=== PATIENT | female | born 1940 | race Caucasian/White ===

== ENCOUNTER → 2017-12-16 | Outpatient (CLI) | payer OTHER ==
[~2017-12-16] MED LIST: BENAZEPRIL-HCT1 EA10 PO; COLACE 100 MG100 MG PO; FELODIPINE 5 MG5 M1 PO; FLAGYL500 MG PO; HYDROCODON-ACE1 EAC7 PO; KLOR-CON 1010 MEQ PO; LEVAQUIN 750 M750 MG PO; LOPRESSOR50 PO; METFORMIN HCL500 MG PO; XALATAN2.5 ML OPHTHALMIC; XANAX 0.5 MG0.5 MG PO; ZOCOR20 MG PO
== END ==
LOC: M.RAD 14:09
DX: Z12.31 Encounter for screening mammogram for malignant neoplasm of breast (principal); M85.88 Other specified disorders of bone density and structure, other site; N91.2 Amenorrhea, unspecified; Z78.0 Asymptomatic menopausal state

== ENCOUNTER → 2019-06-05 | Outpatient (CLI) | payer OTHER | LOC: M.RAD 06:34 | DX: Z12.31 Encounter for screening mammogram for malignant neoplasm of breast (principal) ==

== ENCOUNTER 2020-07-25 17:53 | Observation (INO) | payer MEDICARE ==
[~2020-07-25] VITALS: Ht 162.6 cm; Wt 67.6 kg
[2020-07-25 18:06] VITALS: BP 126/59
[2020-07-25] MEDS ORDERED: TOPROL XL100 MG PO (18:10)
[2020-07-25] MEDS ORDERED: NORVASC5 M1 PO (18:11)
[2020-07-25] MEDS ORDERED: BENAZEPRIL-HCT1 EA10 PO (18:11)
[2020-07-25] MEDS ORDERED: METFORMIN HCL500 M3 PO (18:12)
[2020-07-25] MEDS ORDERED: KLOR-CON 1010 MEQ PO (18:12)
[2020-07-25] MEDS ORDERED: ZOCOR 20 MG TAB20 M1 PO (18:13)
[2020-07-25] MEDS ORDERED: LATANOPROST 0.2.5 ML OPHTHALMIC (18:14)
[2020-07-25] MEDS ORDERED: ASA81BEC PO (18:14)
[2020-07-25] MEDS ORDERED: VITAMIN D3 COM1 EACH PO (18:15)
[2020-07-25] MEDS ORDERED: ALPRAZOLAM 0.50.5 M1 PO (18:15)
[2020-07-25] MEDS ORDERED: NORCO 5-325 TA1 EAC2 PO ×2 (19:32)
[2020-07-25 19:56] LABS: ABSOLUTE BASOPHILS 0.1 thou/uL (0.0-0.2); ABSOLUTE EOSINOPHILS 0.2 thou/uL (0.0-0.7); ABSOLUTE LYMPHOCYTES 1.6 thou/uL (0.8-5.3); ABSOLUTE MONOCYTES 0.6 thou/uL (0.0-1.2); ABSOLUTE NEUTROPHILS 7.3 thou/uL (1.6-8.1); BASOPHILS 0.6 %; EOSINOPHILS 2.1 %; HEMOGLOBIN 12.5 gm/dL (12.0-15.0); LYMPHOCYTES 16.7 %; MCH 31.2 pg (26.0-34.0); MCHC 34.6 g/dL (28.0-37.0); MCV 90.1 fL (80.0-100.0); MPV 8.6 fl. (7.2-11.1); NUCLEATED RBCS 0 /100WBC; PLATELET COUNT* 173 thou/uL (150-400); POLYS 74.6 %; RDW-CV 13.4 % (10.5-14.5); WBC 9.7 thou/uL (4.0-11.0)
[2020-07-25 20:35] LABS: CALCIUM 8.8 mg/dL (8.5-10.1); CREATININE 0.8 mg/dL (0.6-1.3); POTASSIUM 3.6 mmol/L (3.5-5.1)
[2020-07-25 20:40] LABS: ALBUMIN 3.9 g/dL (3.4-5.0); TOTAL BILIRUBIN 0.4 mg/dL (<0.1-1.0); TOTAL PROTEIN 7.3 g/dL (6.4-8.2)
[2020-07-25 23:17] VITALS: BP 126/62
[2020-07-26 03:30] VITALS: BP 113/59
[2020-07-26 07:45] VITALS: BP 135/57
[2020-07-26 11:30] VITALS: BP 148/63
[2020-07-26] MEDS ORDERED: HYDROCODON-ACE1 EAC7 PO (12:43)
[2020-07-26 15:40] VITALS: BP 140/70
[2020-07-26 15:47] VITALS: BP 140/70
[2020-07-26 16:00] VITALS: BP 129/60
== END 2020-07-26 16:20 | disposition home or self-care (01) ==
LOC: M.ERS 17:53 → M.TBA-ER 19:39
PROVIDERS: Physician Assistant; ADMIT Internal Medicine; ATTEND Internal Medicine
DX: S42.202A Unspecified fracture of upper end of left humerus, initial encounter for closed fracture (principal); E11.9 Type 2 diabetes mellitus without complications; I10 Essential (primary) hypertension; E78.5 Hyperlipidemia, unspecified; Z79.82 Long term (current) use of aspirin; Z79.899 Other long term (current) drug therapy; Z20.828 Contact with and (suspected) exposure to other viral communicable diseases; W01.0XXA Fall on same level from slipping, tripping and stumbling without subsequent striking against object, initial encounter; Y93.89 Activity, other specified; Y92.89 Other specified places as the place of occurrence of the external cause

== ENCOUNTER → 2020-08-02 | Outpatient (CLI) | payer MEDICARE ==
[~2020-08-02] MED LIST changes: +ALPRAZOLAM 0.50.5 M1 PO; +ASA81BEC PO; +ELIQUIS5 MG PO; +LATANOPROST 0.2.5 ML OPHTHALMIC; +METFORMIN HCL500 M3 PO; +NORCO 5-325 TA1 EAC2 PO; +NORVASC5 M1 PO; +OXYCODONE HCL 55 MG PO; +PROLIA60 MG/1 ML SUBQ; +TOPROL XL100 MG PO; +TRAMADOL 50 MG50 MG PO; +VITAMIN D3 COM1 EACH PO; +VITAMIN D350 MCG PO; +ZOCOR 20 MG TAB20 M1 PO
[2020-08-02 14:13] LABS: ABSOLUTE BASOPHILS 0.1 thou/uL (0.0-0.2); ABSOLUTE EOSINOPHILS 0.3 thou/uL (0.0-0.7); ABSOLUTE LYMPHOCYTES 1.6 thou/uL (0.8-5.3); ABSOLUTE MONOCYTES 0.6 thou/uL (0.0-1.2); ABSOLUTE NEUTROPHILS 4.3 thou/uL (1.6-8.1); BASOPHILS 0.9 %; EOSINOPHILS 3.9 %; HEMATOCRIT 31.8 % (37.0-47.0); HEMOGLOBIN 11.2 gm/dL (12.0-15.0); MCH 31.4 pg (26.0-34.0); MCV 89.5 fL (80.0-100.0); MONOCYTES 9.3 %; MPV 7.7 fl. (7.2-11.1); NUCLEATED RBCS 0 /100WBC; PLATELET COUNT* 263 thou/uL (150-400); POLYS 61.9 %; RBC 3.56 mil/uL (4.20-5.00); RDW-CV 13.6 % (10.5-14.5); WBC 6.9 thou/uL (4.0-11.0)
[2020-08-02 14:23] LABS: ALBUMIN 3.6 g/dL (3.4-5.0); CALCIUM 8.6 mg/dL (8.5-10.1); CREATININE 0.8 mg/dL (0.6-1.3); POTASSIUM 3.7 mmol/L (3.5-5.1); PROTIME 11.1 Seconds (9.20-11.50); TOTAL BILIRUBIN 0.6 mg/dL (<0.1-1.0); TOTAL PROTEIN 7.5 g/dL (6.4-8.2)
[2020-08-02 15:15] LABS: ESR (SEDRATE) 34 mm/hr (0-30)
--- NOTE | 2020-08-02 17:26 | EKG ---
[place] [address] ELECTROCARDIOGRAM REPORT Name: MAXINECORKY GEOVANNI Room: [facility]#: [id number] Admission: 08/02/20 Attend Phys: Emiliano Nuñez Discharge: Date of : 42 Date of Service: 08/02/20 1457 Report #: [id number] THIS REPORT FOR: //name// [facility] Test Date: 2020-08-02 Test Time: 14:57:47 Pat Name: CORKY GOODMAN Department: Room: Gender: F Supervisor Tower: : 1940 Requested By: Emiliano Still Order Number: [id number] Leticia MD: Dave Huitron Measurements Intervals [place] Rate: 72 P: 52 MS: 173 QRS: 49 QRSD: 96 T: 27 QT: 406 QTc: 445 Interpretive Statements Sinus rhythm Atrial premature complexes No previous ECG available for comparison Electronically Signed On 08-02-2020 17:25:50 WELCOME [employer]OSTESS by Dave Huitron [email or web address] <ELECTRONICALLY SIGNED> By: Dave Huitron MD, [facility] 08/02/20 1725 145 56 Dave Huitron MD, FACC /EPI
[2020-08-04 07:07] LABS: GLYCOHEMOGLOBIN (HGB A1C) 5.8 % (4.8-5.6)
== END ==
LOC: M.LAB 10:36
PROVIDERS: ATTEND Orthopaedic Surgery
DX: Z01.812 Encounter for preprocedural laboratory examination (principal); I49.9 Cardiac arrhythmia, unspecified; Z20.828 Contact with and (suspected) exposure to other viral communicable diseases; S42.302A Unspecified fracture of shaft of humerus, left arm, initial encounter for closed fracture; X58.XXXA Exposure to other specified factors, initial encounter; Y93.89 Activity, other specified; Y92.89 Other specified places as the place of occurrence of the external cause; Y99.8 Other external cause status

== ENCOUNTER 2020-08-08 08:16 | Observation (INO) | payer MEDICARE ==
[~2020-08-08] VITALS: Ht 162.6 cm; Wt 67.6 kg
--- NOTE | ~2020-08-08 | OP ---
[facility] [place] [facility] [address] [place] [address] OPERATIVE REPORT Name: CORKY GOODMAN Room: [address] M.RNitesh#: [id number] Admission: 08/08/20 Attend Phys: Chantell Polanco Discharge: Date of : 42 Report #: [id number] THIS REPORT FOR: //name// cc: Lacy Gross MD, Lin W. MD ~ CC: Emiliano Plunkett DATE OF SERVICE: 08/08/2020 Kong Block dictating for Dr. Emiliano Still. PREOPERATIVE DIAGNOSIS: Displaced 4-part left proximal humerus fracture. POSTOPERATIVE DIAGNOSIS: Displaced 4-part left proximal humerus fracture. PROCEDURE PERFORMED: Left reverse total shoulder using the Tournier Aequalis reverse system with the following components: 1. A size 25 mm baseplate with 25 mm threaded post. 2. A glenoid screws, length 32 and 29. 3. A 36 mm standard glenosphere. 4. A size 9 humeral fracture stem. 5. Butterfield and Nephew bone cement. 6. A +12 mm retentive polyethylene component. SURGEON: Emiliano Still DO PIPE COVERER AND INSULATOR: Kong Block DO; Herlinda Hough DO ANESTHESIA: General with interscalene block. ESTIMATED BLOOD LOSS: 250 mL. SPECIMENS: None. COMPLICATIONS: None. ANTIBIOTICS: 900 IV clindamycin preoperatively. INDICATIONS: The patient is a 80-year-old female who we saw as an inpatient consult approximately 2 weeks ago for a left proximal humerus fracture. She sustained a ground level fall. Her fracture was noted to be completely displaced with high risk factors for humeral head ischemia as well as nonunion and poor function. She was discharged from the hospital, we saw her in our clinic. We discussed treatment options [place] [address] OPERATIVE REPORT Name: CORKY GOODMAN Room: [address] Ferny Holguin#: [id number] Admission: 08/08/20 Attend Phys: Chantell Polanco Discharge: Date of : 42 Report #: [id number] arthroplasty. At that point, our recommendations were for reverse shoulder arthroplasty for increased function and decrease pain. DESCRIPTION OF PROCEDURE: The patient was seen in the preoperative area. Written consent was obtained. The operative site was marked. She was brought back to the operative suite, given the benefit of general anesthesia. She was placed in modified beach chair position utilizing the T-max table. Left upper extremity was prepped and draped in normal sterile fashion. Surgery timeout for correct side, site, procedure verified. All in attendance were in agreement. We began with creation of the incision for a standard deltopectoral approach. Sharp dissection through skin. We bovied through the subcutaneous fat. We identified the interval between the deltoid and pectoralis major. The cephalic vein was identified and protected throughout the procedure. It was retracted laterally. We entered the subacromial space. Placed our retractors appropriately around the proximal humerus. We identified the fracture fragments including the tuberosities as well as the head. We mobilized the lesser tuberosity with a traction stitch. We were then able to remove the humeral head, which was displaced quite posteriorly. After this, we mobilized our greater tuberosity piece again with traction suture. At this point, we had a good view of our glenoid after the retractors were placed appropriately. We removed any redundant capsular tissues as well as the labrum and biceps anchor. We then placed a pin in 10 degrees of inferior tilt in the appropriate position with the guide on the inferior edge of the glenoid. We reamed over this with a 25 and 29 mm reamers. This was followed by the peripheral reamer for the glenosphere. We then used the central drill, followed by the drill for the threaded base. It measured to 25. The 25 mm baseplate with 25 mm threaded post was inserted. Excellent purchase with the screw. We then drilled, measured and inserted screws into the superior and inferior aspects of the baseplate. We then impacted the glenosphere in place. We turned our attention to the humerus, which we sequentially reamed up to a size 9. At this point, the final implant was opened on the back table. We then placed our sutures, combination of #5 FiberWire, #5 Ti-Cron through the posterior superior cuff. One of these sutures then subsequently placed through the subscapularis tendon as well. The remaining two #5 sutures were passed through the medial portion of the implant. We then mixed cement, wrapped it around the distal aspect of the implant. This was inserted in typical fashion in 30 degrees of retroversion. The excess cement was removed. We allowed time for the cement to harden. We then sequentially trialed components up to a +12 mm retentive implant. The shoulder was reduced, taken through range of motion. It was found to be stable. We therefore opened and impacted the final 12 mm retentive polyethylene. Shoulder was reduced. It was again found to be stable. We then tied our sutures over the posterior superior cuff followed by the Wyudif-Tni-Wwlal suture. We then ran vertical compression stitches through the posterior, superior and anterior cuff to help achieve better tuberosity healing. Prior to this, we placed bone graft underneath the tuberosity pieces again to maximize healing potential. Wound was thoroughly irrigated. We loosely closed the interval with #1 [place] [address] OPERATIVE REPORT Name: CORKY GOODMAN Room: [address] MRenee.#: [id number] Admission: 08/08/20 Attend Phys: Chantell Polanco Discharge: Date of : 42 Report #: [id number] in a running fashion. Subcutaneous tissues were closed with 2-0 Vicryl in a simple interrupted fashion. Skin was reapproximated with a running 3-0 Stratafix and skin glue was applied. We placed a Mepilex. She was put in a sling. She was awoken from anesthesia and transferred to PACU in stable condition. There was no evidence of complication. Needle and sponge counts correct x 2. Dr. Still was present for all critical aspects of the case. By: [id number] Still, /nt
[~2020-08-08 08:16] MED LIST changes: -ELIQUIS5 MG PO; -OXYCODONE HCL 55 MG PO; -TRAMADOL 50 MG50 MG PO
[2020-08-08] MEDS ORDERED: HYDROCODON-ACE1 EAC7 PO (08:45)
[2020-08-08 09:00] VITALS: BP 146/74
[2020-08-08 13:25] LABS: HEMOGLOBIN 10.1 gm/dL (12.0-15.0)
[2020-08-08 15:03] VITALS: BP 158/84
--- NOTE | 2020-08-08 15:22 | NUR ---
PT ADMITTED POST OP SURGERY. PT ORIENTED TO ROOM. PAIN MEDS GIVEN ORDERED. FALL RISK PRECAUTIONS IN PLACE. WILL CONTINUE TO MONITOR.
--- NOTE | 2020-08-08 16:56 | NUR ---
PT REMAINED ALERT AND ORIENTED. PT RESTING IN BED. PAIN MEDS GIVEN ORDERED. FALL RISK PRECAUTIONS IN PLACE. HOURLY ROUNDING COMPLETED. WILL CONTINUE TO MONITOR.
[2020-08-08 20:00] VITALS: BP 137/61
[2020-08-09] VITALS (8 sets, daily range): BP systolic 122–150; BP diastolic 60–68
[2020-08-09 04:42] LABS: HEMATOCRIT 25.2 % (37.0-47.0); HEMOGLOBIN 8.7 gm/dL (12.0-15.0)
--- NOTE | 2020-08-09 06:38 | NUR ---
Alert and oriented x 4. L shoulder dressing inatc with sling and polarcare in place. She has good sensation and the block used after surgery has worn off. She has had a lot of pain. Oxycodone given x 3 and dilaudid x 2. Ortho resident here and it was reported to him. She is getting up well with stand by assist to bedside commode. O2 has been at 2L n/c and her continuous pulse ox has not alarmed. She hasn't slept well.
--- NOTE | 2020-08-09 09:43 | NUR ---
Pt is A&O. Resides at home with her . Normally active and independent. No DME. No hx of HH or SNF. Goal is home at nd, Pt wants [facility], has used them in the past. CM faxed initial referral to , orders will need to be faxed at [place] to [phone]. Updated Steffi at of referral.
[2020-08-09] MEDS ORDERED: OXYCODONE HCL 55 MG PO (12:04)
[2020-08-09] MEDS ORDERED: TRAMADOL 50 MG50 MG PO (12:04)
[2020-08-09] MEDS ORDERED: ELIQUIS5 MG PO (12:04)
--- NOTE | 2020-08-09 14:07 | NUR ---
PT DISCHARGED HOME WITH HOME HEALTH. COPY OF DISCHARGE PAPERWORK TO PT WITH EXPLAINATION. PT VERBALIZED UNDERSTANDING. PRESCRIPTIONS WITH MEDICATION PAPERWORK TO PT WITH EXPLAINATION. PT VERBALIZED UNDERSTANDING. POLAR PACK SENT WITH PT WITH INSTRUCTIONS. IV ACCESS REMOVED.
--- NOTE | 2020-08-09 15:21 | NUR ---
PT.DISCHARGED EARLIER. [facility] HAD ACCEPTED PT.EARLIER. FAXED DISCHARGE SUMMARY,MEDS,ORDERS AND ORTHO PROGRESS NOTE FROM TODAY.
== END 2020-08-09 14:10 | disposition home or self-care (01) ==
LOC: M.TBA 08:16 → M.ORTHSURG 14:40 → M.3W 14:45 → M.ORTHSURG 14:57 → M.3W 08-09 14:10
PROVIDERS: Orthopaedic Surgery; ADMIT Internal Medicine; ATTEND Internal Medicine
DX: S42.202A Unspecified fracture of upper end of left humerus, initial encounter for closed fracture (principal); E11.9 Type 2 diabetes mellitus without complications; I10 Essential (primary) hypertension; E78.5 Hyperlipidemia, unspecified; M81.0 Age-related osteoporosis without current pathological fracture; D64.9 Anemia, unspecified; Z79.899 Other long term (current) drug therapy; X58.XXXA Exposure to other specified factors, initial encounter; Y93.89 Activity, other specified; Y92.89 Other specified places as the place of occurrence of the external cause

== ENCOUNTER 2021-06-06 10:09 | Emergency (ER) | payer MEDICARE ==
[~2021-06-06] VITALS: Ht 160 cm; Wt 64.9 kg
[~2021-06-06 10:09] MED LIST changes: +ELIQUIS5 MG PO; +OXYCODONE HCL 55 MG PO; +TRAMADOL 50 MG50 MG PO
[2021-06-06 14:19] LABS: ABSOLUTE BASOPHILS 0.1 thou/uL (0.0-0.2); ABSOLUTE EOSINOPHILS 0.1 thou/uL (0.0-0.7); ABSOLUTE LYMPHOCYTES 2.2 thou/uL (0.8-5.3); ABSOLUTE MONOCYTES 0.8 thou/uL (0.0-1.2); ABSOLUTE NEUTROPHILS 7.5 thou/uL (1.6-8.1); BASOPHILS 0.6 %; EOSINOPHILS 1.1 %; HEMATOCRIT 39.6 % (37.0-47.0); HEMOGLOBIN 13.8 gm/dL (12.0-15.0); LYMPHOCYTES 20.6 %; MCH 31.1 pg (26.0-34.0); MCHC 34.9 g/dL (28.0-37.0); MCV 89.1 fL (80.0-100.0); MONOCYTES 7.3 %; MPV 8.2 fl. (7.2-11.1); NUCLEATED RBCS 0 /100WBC; PLATELET COUNT* 229 thou/uL (150-400); POLYS 70.4 %; RBC 4.44 mil/uL (4.20-5.00); RDW-CV 14.5 % (10.5-14.5); WBC 10.6 thou/uL (4.0-11.0)
[2021-06-06 14:23] LABS: URINE BILIRUBIN NEGATIVE (Negative); URINE BLOOD 1+ (Negative); URINE COLOR YELLOW; URINE GLUCOSE-RANDOM NEGATIVE (Negative); URINE KETONES 1+ (Negative); URINE NITRITE-REFLEX NEGATIVE (Negative); URINE PROTEIN NEGATIVE (Negative); URINE SPECIFIC GRAVITY >= 1.030 (1.005-1.030); URINE UROBILINOGEN 0.2 E.U./dl (0.2-1.0)
[2021-06-06 14:25] LABS: URINE CLARITY HAZY; URINE LEUKOCYTES-REFLEX 2+ (Negative)
[2021-06-06 14:32] LABS: CALCIUM 9.4 mg/dL (8.5-10.1)
[2021-06-06 14:33] LABS: POTASSIUM 2.7 mmol/L (3.5-5.1)
[2021-06-06 14:34] LABS: SQUAMOUS NONE SEEN /LPF (0-3)
[2021-06-06 14:35] LABS: BACTERIA-REFLEX None Seen /HPF (None Seen); MUCUS None Seen strn/LPF (None Seen)
[2021-06-06 14:36] LABS: CRYSTALS None Seen /LPF (None Seen); HYALINE CASTS 0-3 Few /LPF (None Seen)
[2021-06-06 14:36] LABS: ALBUMIN 4.5 g/dL (3.4-5.0); TOTAL BILIRUBIN 0.6 mg/dL (<0.1-1.0); TOTAL PROTEIN 7.8 g/dL (6.4-8.2)
[2021-06-06 14:37] LABS: YEAST-REFLEX Present (None Seen)
--- NOTE | 2021-06-06 14:40 | EKG ---
[place] [address] ELECTROCARDIOGRAM REPORT Name: CORKY GOODMAN GEOVANNI Room: [facility]#: [id number] Admission: 06/06/21 Attend Phys: Discharge: Date of : 42 Date of Service: 06/06/21 1431 Report #: [id number] THIS REPORT FOR: //name// [facility] ED Test Date: 2021-06-06 Test Time: 14:31:35 Pat Name: CORKY GOODMAN Department: Room: Gender: Information Security Risk Analyst: NEGRO : 1940 Requested By: Lashae Martinez Order Number: [id number] MD: Dave Huitron Measurements Intervals [employer] Rate: 99 P: 83 WV: 201 QRS: 74 QRSD: 105 T: 264 QT: 349 QTc: 448 Interpretive Statements Sinus rhythm Nonspecific repol abnormality, diffuse leads Baseline wander in lead(s) II,III,aVR,aVL,aVF,V1,V2,V3,V4,V5,V6 Compared to ECG 08/02/2020 14:57:47 Early repolarization now present Atrial premature complex(es) no longer present Electronically Signed On 06-06-2021 14:40:01 CDT by Dave Huitron [email or web address] <ELECTRONICALLY SIGNED> By: Dave Huitron MD, [facility] 06/06/21 1440 1431 1431 Dave Huitron MD, [facility] /EPI
[2021-06-06 14:59] LABS: URINE RBC 0-2 Rare /HPF (0-2)
[2021-06-06 15:09] LABS: CASTS None Seen /LPF (None Seen)
[2021-06-06] MEDS ORDERED: CEPHALEXIN500 MG PO (15:27)
[2021-06-06] MEDS ORDERED: ONDANSETRON ODT4 MG PO (15:27)
[2021-06-06] MEDS ORDERED: K-DUR 20 MEQ T20 MEQ PO (15:27)
[2021-06-06 15:53] VITALS: BP 161/75
== END 2021-06-06 15:54 | disposition home or self-care (01) ==
LOC: M.ERS 10:09
PROVIDERS: Physician Assistant
DX: N39.0 Urinary tract infection, site not specified (principal); Z20.822 Contact with and (suspected) exposure to COVID-19; E87.6 Hypokalemia; I10 Essential (primary) hypertension; E11.9 Type 2 diabetes mellitus without complications; E78.5 Hyperlipidemia, unspecified; Z79.899 Other long term (current) drug therapy; Z88.0 Allergy status to penicillin; Z88.8 Allergy status to other drugs, medicaments and biological substances

== ENCOUNTER → 2021-10-17 | Outpatient (CLI) | payer MEDICARE ==
[~2021-10-17] MED LIST changes: +CEPHALEXIN500 MG PO; +K-DUR 20 MEQ T20 MEQ PO; +ONDANSETRON ODT4 MG PO
== END ==
LOC: M.ULTRA 13:00
PROVIDERS: ATTEND Internal Medicine
DX: Z12.31 Encounter for screening mammogram for malignant neoplasm of breast (principal); E04.2 Nontoxic multinodular goiter

== ENCOUNTER → 2021-11-10 | Outpatient (CLI) | payer MEDICARE ==
--- NOTE | 2021-11-13 17:07 | PATH ---
[address] [address] PATHOLOGY RPT PROCEDURE Name: CORKY GOODMAN Room: [facility]#: [id number] Admission: 11/10/21 Date of : 42 Discharge: Report #: [id number] Path Case #: [id number] Note [facility] Accession Number: [id number] TESTS RESULT FLAG UNITS REF RANGE LAB Clinician Provided Cytology Information No. of containers..01 Other (Miscellaneous) Source: [A] 01 LEFT THYROID DIAGNOSIS: [A] 02 LEFT THYROID, IMAGE GUIDED FNA: BETHESDA CATEGORY III, ATYPIA OF UNDETERMINED SIGNIFICANCE. ABUNDANT FOLLICULAR CELLS WITH SCATTERED HURTHLELOID FEATURES AND NUCLEAR ATYPIA AND BACKGROUND OF CYSTIC DEGENERATION AND COLLOID. THIS INTERPRETATION INCLUDES EVALUATION OF A CELL BLOCK. Signed out by: 02 Bull Chew MD, Pathologist NPI- [id number] Performed by: 01 Anastacia Gustafson, Yacht Captain ([facility]) Gross description: 01 10ML, [place] /[place] 11/13/2021 1338 Local FLAG LEGEND: L-Low Normal,H-High Normal,LL-Alert Low,HH-Alert High <-Panic Low,>-Panic High,A-Abnormal,AA-Critical Abnormal Performed at: [address] [place] [address] Rory Tabor MD, [address] [place] [address] [place] [address] Bull Chew MD, Specimen Comment: A courtesy copy of this report has been sent to [phone] Specimen Comment: Report sent to Performed at: [address], [place], [place] [id number] MD Rory Tabor MD Phone: [phone]
== END | disposition home or self-care (01) ==
LOC: M.ULTRA 08:30
PROVIDERS: ATTEND Otolaryngology
DX: E04.1 Nontoxic single thyroid nodule (principal); Z87.440 Personal history of urinary (tract) infections